=== PATIENT | female | born 1960 | race Two or more races ===

== ENCOUNTER 2019-05-07 10:06 | Emergency (ER) | payer MEDICARE, MEDICAID ==
[~2019-05-07] VITALS: Ht 172.7 cm; Wt 99.8 kg
[2019-05-07 11:47] VITALS: BP 118/52
[2019-05-07] MEDS ORDERED: cefTRIAXone SOD 1,000 MG VL IM ONE (13:30)
[2019-05-10] MEDS ORDERED: METF-370 PO (00:19)
[2019-05-10] MEDS ORDERED: GEMF600T7 PO (00:20)
[2019-05-10] MEDS ORDERED: GABA300C10 PO (00:20)
[2019-05-10] MEDS ORDERED: PRAV20TA3 PO (00:21)
[2019-05-10] MEDS ORDERED: ATE50T PO (00:22)
[2019-05-10] MEDS ORDERED: TOPI1CAP24 PO (00:22)
[2019-05-10] MEDS ORDERED: NAPR-476 PO (00:23)
[2019-05-10] MEDS ORDERED: TOPI25TA84 PO (00:23)
[2019-05-10] MEDS ORDERED: BENA-30 PO (00:24)
[2019-05-10] MEDS ORDERED: AMIT25TA9 PO (00:24)
[2019-05-10] MEDS ORDERED: TRAM50TA2 PO (00:25)
[2019-05-10] MEDS ORDERED: BUSP15TA60 PO (00:26)
[2019-05-10] MEDS ORDERED: OMEP20TA PO (00:26)
== END 2019-05-07 13:51 | disposition home or self-care (01) ==
LOC: ER 10:06
DX: L03.311 Cellulitis of abdominal wall (principal); E11.9 Type 2 diabetes mellitus without complications; K21.9 Gastro-esophageal reflux disease without esophagitis; E78.5 Hyperlipidemia, unspecified; I10 Essential (primary) hypertension
CPT/HCPCS: 96372; 99283; J0696

== ENCOUNTER 2019-12-21 22:10 | Emergency (ER) | payer MEDICARE, MEDICAID ==
[~2019-12-21] VITALS: Ht 167.6 cm; Wt 90.7 kg
[~2019-12-21 22:10] MED LIST: AMIT25TA9 PO; ATE50T PO; BENA-30 PO; BUSP15TA60 PO; GABA300C10 PO; GEMF600T7 PO; METF-370 PO; OMEP20TA PO; PRAV20TA3 PO; TOPI25TA84 PO; TRAM50TA2 PO
[2019-12-22 00:59] LABS: Urine Bacteria FEW /hpf (None Seen); Urine Blood Negative /uL (Negative); Urine Mucus FEW (None Seen); Urine Specific Gravity 1.006 (1.001-1.035); Urine WBC 5 /hpf (0 - 5)
[2019-12-22 01:09] LABS: Amphetamine Screen, Urine NEGATIVE (NEGATIVE); Barbiturate Scree,Urine NEGATIVE (NEGATIVE); Benzodiazephine Screen, Urine NEGATIVE (NEGATIVE); Cannabinoid Screen, Urine NEGATIVE (NEGATIVE); Cocaine Screen, Urine NEGATIVE (NEGATIVE); Opiate Scree,Urine NEGATIVE (NEGATIVE); Phencyclidine Screen, Urine NEGATIVE (NEGATIVE)
[2019-12-22 01:32] LABS: Basophils # (auto) 0 10 ^3/uL (0-0.2); Basophils % (auto) 0.7 % (0.0-2.0); Eosinophils # (auto) 0.2 10 ^3/uL (0-0.8); Eosinophils % (auto) 4.2 % (0.0-7.0); Hematocrit 34.1 % (36.0-46.0); Hemoglobin 11.3 g/dL (12.2-16.2); Lymphocytes # (auto) 1.5 10 ^3/uL (0.4-5.4); Lymphocytes % (auto) 28.4 % (10.0-50.0); Mean Corpuscular Hemoglobin 28.5 pg (28.0-32.0); Mean Corpuscular Hgb Conc. 33.1 g/dL (32.0-36.0); Mean Corpuscular Volume 86.2 fL (80.0-100.0); Monocytes # (auto) 0.3 10 ^3/uL (0-1.3); Monocytes % (auto) 6.3 % (0.0-12.0); Neutrophils # (auto) 3.1 10 ^3/uL (1.6-8.6); Neutrophils % (auto) 60.4 % (37.0-80.0); Nucleated Red Blood Cells % 0.1 %; Platelet Count (auto) 189 10^3/uL (140-450); Red Blood Cells 3.95 10^6/uL (4.0-5.20); Red Cell Distribution Width 16.5 % (11.8-14.3); White Blood Cell 5.1 10^3/uL (4.4-10.8)
[2019-12-22 01:55] LABS: Anion Gap 8 (5-15); Blood Urea Nitrogen 13 mg/dL (7-18); Calcium 9.3 mg/dL (8.5-10.1); Carbon Dioxide 20 mmol/L (21-32); Chloride 111 mmol/L (98-107); Glucose 218 mg/dL (74-106); Potassium 3.7 mmol/L (3.5-5.1); Sodium 139 mmol/L (136-145)
[2019-12-22 01:58] LABS: Albumin 3.1 g/dL (3.4-5.0); BUN/Creatinine Ratio 18.6; Blood Alcohol < 3.0 mg/dL (0-5); GFR African American 111 mL/min; GFR Non-African American 91 mL/min
[2019-12-22 02:11] LABS: Alanine Aminotransferase 216 U/L (13-56); Alkaline Phosphatase 653 U/L (45-117); Aspartate Aminotransferase 177 U/L (15-37); Bilirubin, Total 8.1 mg/dL (0.2-1.0); Total Protein 7.1 g/dL (6.4-8.2)
[2019-12-22 03:43] LABS: Acetaminophen < 2.0 ug/mL (10-30); Salicylate < 1.7 mg/dL (2.8-20.0)
[2019-12-22] MEDS ORDERED: HYDROmorphone HCL 2 MG/ML VL IV ONE ×2 (05:45)
[2019-12-22] MEDS ORDERED: ONDANSETRON HCL 4 MG/2 ML VIAL IV ONE (05:45)
[2019-12-22 06:00] VITALS: BP 128/69
== END 2019-12-22 05:49 | disposition home or self-care (01) ==
LOC: EDBD 22:10 → ER 22:15
DX: C22.9 Malignant neoplasm of liver, not specified as primary or secondary (principal); E11.9 Type 2 diabetes mellitus without complications; K21.9 Gastro-esophageal reflux disease without esophagitis; E78.5 Hyperlipidemia, unspecified; I10 Essential (primary) hypertension
CPT/HCPCS: 36415; 80053; 80307; 80320; 80329; 81001; 83735; 85025; 96374; 96375; 99285; J1170; J2405